=== PATIENT | female | born 1940 | race African-American/Black ===

== ENCOUNTER 2024-09-01 16:55 | Inpatient (IN) | payer MEDICAID ==
[~2024-09-01] VITALS: Ht 160 cm; Wt 52.7 kg
[2024-09-01 18:00] VITALS: BP 125/64; PULSE 90; RESP 18; TEMP 36.1956
[2024-09-01] MEDS ORDERED: GUAIFENESIN 200MG/10ML SUGAR FREE UDC PO PRN (18:00)
[2024-09-01] MEDS ORDERED: MAGNESIUM/ALUMINUM HYDROXIDE/SIMETHICONE 30ML UDC PO PRN (18:00)
[2024-09-01] MEDS ORDERED: CLONIDINE 0.1MG TABLET PO PRN (18:00)
[2024-09-01] MEDS ORDERED: ONDANSETRON 4MG ODT SL PRN (18:00)
[2024-09-01 20:00] VITALS: BP 122/67; PULSE 20; RESP 18; TEMP 36.16956; O2SAT 98
[2024-09-01] MEDS: ACETAMINOPHEN 650MG/20.3ML UDC PO PRN (21:23)
[2024-09-01] MEDS: DICLOFENAC SODIUM 1% GEL 50GM TOP SCH (21:24)
[2024-09-01] MEDS ORDERED: OMEP40CA20 PO (23:28)
[2024-09-01] MEDS ORDERED: MULT-1116 MT (23:28)
[2024-09-01] MEDS ORDERED: CALC-992 PO (23:28)
[2024-09-01] MEDS ORDERED: MELA3TAB42 PO (23:28)
[2024-09-01] MEDS ORDERED: ACET-2708 PO (23:28)
[2024-09-01] MEDS ORDERED: DOCU-138 PO (23:28)
[2024-09-01] MEDS ORDERED: POLY17PO3 PO (23:28)
[2024-09-01] MEDS ORDERED: LISI10TA26 PO (23:28)
[2024-09-02] MEDS: PANTOPRAZOLE 40MG DR TABLET PO SCH (06:04)
[2024-09-02 08:00] VITALS: BP 125/68; PULSE 71; RESP 20; TEMP 36.00288; O2SAT 98
[2024-09-02] MEDS: LISINOPRIL 10MG TABLET PO SCH (09:00)
[2024-09-02] MEDS: AMLODIPINE 5MG TABLET PO SCH (09:13)
[2024-09-02] MEDS: ENOXAPARIN 40MG/0.4ML SYR SUBCUT SCH (09:13)
[2024-09-02 10:06] LABS: BASOPHILS % 1.2 % (0.0-2.0); EOSINOPHILS % 1.2 % (0.0-5.0); HEMATOCRIT. 40.8 % (36.0-48.0); HEMOGLOBIN. 13.2 g/dL (12.0-16.0); LYMPHOCYTES % 29.4 % (20.0-50.0); MEAN CORPUSCULAR HEMOGLOBIN 28.4 pg (28.0-32.0); MEAN CORPUSCULAR HGB CONC 32.3 g/dL (31.0-37.0); MEAN PLATELET VOLUME 8.4 fl (7.4-10.4); MONOCYTES % 5.2 % (2.0-8.0); PLATELET 434 x1000/uL (130-400); RED BLOOD CELL COUNT 4.64 mill/uL (4.2-5.4); WHITE BLOOD COUNT 9.3 x1000/uL (4.5-11.0)
[2024-09-02 15:02] LABS: CHLORIDE 101 mEq/L (98-107); POTASSIUM 4.8 mEq/L (3.5-5.1); SODIUM 136 mEq/L (136-145)
[2024-09-02 15:03] LABS: CALCIUM 9.3 mg/dL (8.7-10.4); CARBON DIOXIDE 28 mEq/L (21-32)
[2024-09-02 15:08] LABS: CREATININE 0.9 mg/dL (0.6-1.0); GLUCOSE 100 mg/dL (70-105); UREA NITROGEN BLOOD 9 mg/dL (9-23)
[2024-09-02 15:10] LABS: PREALBUMIN 16.7 mg/dl (10.0-40.0)
[2024-09-02 20:00] VITALS: BP 143/68; PULSE 83; RESP 18; TEMP 36.22512; O2SAT 99
[2024-09-02] MEDS: ACETAMINOPHEN 325MG TABLET PO PRN (20:55)
[2024-09-03 08:00] VITALS: BP 137/76; PULSE 71; RESP 18; TEMP 35.8362; O2SAT 100
[2024-09-03 20:00] VITALS: BP 111/54; PULSE 82; RESP 18; TEMP 36.78072; O2SAT 99
[2024-09-04 08:00] VITALS: BP 122/70; PULSE 76; RESP 18; TEMP 36.114; O2SAT 98
[2024-09-04] MEDS: PANTOT AC/MIN OIL/PET HY-PHL OINT (AQUAPHOR) TOP SCH (08:58)
[2024-09-04 20:00] VITALS: BP 106/55; PULSE 78; RESP 18; TEMP 36.22512; O2SAT 100
[2024-09-04] MEDS: ZINC OXIDE 20% OINT 30GM TOP PRN (20:00)
[2024-09-04] MEDS: BISACODYL 5MG TABLET PO NR (21:01)
[2024-09-05 08:00] VITALS: BP 125/61; PULSE 72; RESP 17; TEMP 36.50292; O2SAT 98
[2024-09-05] MEDS: BISACODYL 5MG TABLET PO PRN (08:04)
[2024-09-05 19:34] VITALS: BP 118/55; PULSE 83; RESP 19; TEMP 36.05844; O2SAT 97
[2024-09-06 08:00] VITALS: BP 124/67; PULSE 77; RESP 18; TEMP 36.05844; O2SAT 100
[2024-09-06 20:00] VITALS: BP 125/65; PULSE 89; RESP 19; TEMP 36.28068; O2SAT 100
[2024-09-07 08:00] VITALS: BP 121/70; PULSE 69; RESP 18; TEMP 36.72516; O2SAT 96
[2024-09-07] MEDS: DOCUSATE SODIUM 100MG CAPSULE PO PRN (17:28)
[2024-09-07 20:00] VITALS: BP 131/61; PULSE 82; RESP 19; TEMP 36.16956; O2SAT 99
[2024-09-08 08:00] VITALS: BP 117/69; PULSE 72; RESP 20; TEMP 35.89176; O2SAT 100
[2024-09-08 20:00] VITALS: BP 115/62; PULSE 76; RESP 18; TEMP 36.3918; O2SAT 100
[2024-09-09 08:00] VITALS: BP 98/54; PULSE 90; RESP 17; TEMP 36.22512; O2SAT 100
[2024-09-09 20:00] VITALS: BP 116/55; PULSE 94; RESP 18; TEMP 36.3918; O2SAT 100
[2024-09-10 08:00] VITALS: BP 132/63; PULSE 72; RESP 20; TEMP 36.114; O2SAT 100
[2024-09-10 20:00] VITALS: BP 114/57; PULSE 76; RESP 20; TEMP 36.44736; O2SAT 98
[2024-09-11 08:00] VITALS: BP 140/79; PULSE 64; RESP 20; TEMP 36.00288; O2SAT 100
[2024-09-11 20:00] VITALS: BP 116/60; PULSE 74; RESP 18; TEMP 36.114; O2SAT 100
[2024-09-12 08:00] VITALS: BP 142/74; PULSE 74; RESP 21; TEMP 36.3918; O2SAT 100
[2024-09-12] MEDS: ENOXAPARIN 30MG/0.3ML SYR SUBCUT SCH (08:57)
[2024-09-12 20:00] VITALS: BP 132/78; PULSE 78; RESP 1; TEMP 36.61404; O2SAT 98
[2024-09-13 08:00] VITALS: BP 122/65; PULSE 72; RESP 20; TEMP 36.16956; O2SAT 98
[2024-09-13 22:00] VITALS: BP 103/51; PULSE 84; RESP 20; TEMP 36.22512; O2SAT 97
[2024-09-14 19:32] VITALS: BP 122/65; PULSE 83; RESP 20; TEMP 36.16956; O2SAT 98
[2024-09-15 08:00] VITALS: BP 121/70; PULSE 74; RESP 20; TEMP 36.114; O2SAT 99
[2024-09-15 20:00] VITALS: BP 110/66; PULSE 73; RESP 18; TEMP 36.3918; O2SAT 97
[2024-09-16 07:53] VITALS: BP 111/57; PULSE 66; RESP 18; TEMP 35.89176; O2SAT 99
[2024-09-16 20:00] VITALS: BP 117/72; PULSE 69; RESP 18; TEMP 36.55848; O2SAT 100
[2024-09-17 08:00] VITALS: BP 120/66; PULSE 64; RESP 18; TEMP 35.78064; O2SAT 100
[2024-09-17 20:00] VITALS: BP 137/75; PULSE 74; RESP 19; TEMP 36.6696; O2SAT 99
[2024-09-18 08:00] VITALS: BP 141/80; PULSE 75; RESP 20; TEMP 36.22512; O2SAT 100
[2024-09-18 20:00] VITALS: BP 106/64; PULSE 70; RESP 20; TEMP 36.61404; O2SAT 98
[2024-09-19 08:00] VITALS: BP 118/71; PULSE 65; RESP 18; TEMP 35.8362; O2SAT 100
[2024-09-19 20:00] VITALS: BP 117/62; PULSE 78; RESP 20; TEMP 36.44736; O2SAT 98
[2024-09-20 08:00] VITALS: BP 136/67; PULSE 67; RESP 20; TEMP 36.22512; O2SAT 98
[2024-09-20 20:00] VITALS: BP 155/83; PULSE 72; RESP 18; TEMP 36.33624; O2SAT 95
[2024-09-21 08:00] VITALS: BP 135/73; PULSE 78; RESP 20; TEMP 35.89176; O2SAT 78
[2024-09-21] MEDS ORDERED: AMLO5TAB88 MT (09:02)
[2024-09-21] MEDS ORDERED: LISI10TA26 MT (09:03)
[2024-09-21] MEDS ORDERED: DICL100G58 TP (09:04)
[2024-09-21] MEDS ORDERED: PANT40TA51 MT (09:04)
[2024-09-21 09:06] VITALS: BP 135/73; PULSE 78; TEMP 96.6; O2SAT 98
== END 2024-09-21 12:50 | disposition home health service (06) | DRG 340 ==
PROVIDERS: ADMIT Psychiatry & Neurology Neurology; ATTEND Internal Medicine
DX: S72.401A Unspecified fracture of lower end of right femur, initial encounter for closed fracture (principal); I21.4 Non-ST elevation (NSTEMI) myocardial infarction; M62.82 Rhabdomyolysis; I10 Essential (primary) hypertension; K21.9 Gastro-esophageal reflux disease without esophagitis; M21.371 Foot drop, right foot; M75.01 Adhesive capsulitis of right shoulder; B96.20 Unspecified Escherichia coli [E. coli] as the cause of diseases classified elsewhere; R32 Unspecified urinary incontinence; N39.0 Urinary tract infection, site not specified; J44.9 Chronic obstructive pulmonary disease, unspecified; D50.9 Iron deficiency anemia, unspecified; E78.00 Pure hypercholesterolemia, unspecified; R00.0 Tachycardia, unspecified; M25.551 Pain in right hip; R15.9 Full incontinence of feces; R26.2 Difficulty in walking, not elsewhere classified; Z86.73 Personal history of transient ischemic attack (TIA), and cerebral infarction without residual deficits; Z91.81 History of falling; Z87.440 Personal history of urinary (tract) infections; Z82.49 Family history of ischemic heart disease and other diseases of the circulatory system; W18.30XA Fall on same level, unspecified, initial encounter; Y93.89 Activity, other specified; Y92.89 Other specified places as the place of occurrence of the external cause; Y99.8 Other external cause status
CPT/HCPCS: 36415; 73552; 80048; 84134; 85025; 92523; 97110; 97162; 97166; 97530; 97535; 97542; A6261; J1650; L1830

== ENCOUNTER → 2024-10-05 | Outpatient (CLI) | payer MEDICAID ==
[~2024-10-05] MED LIST: ACET-2708 PO; AMLO5TAB88 MT; CALC-992 PO; DICL100G58 TP; DOCU-138 PO; LISI10TA26 MT; LISI10TA26 PO; MELA3TAB42 PO; MULT-1116 MT; OMEP40CA20 PO; PANT40TA51 MT; POLY17PO3 PO
== END | disposition home or self-care (01) ==
LOC: RAD 11:57
PROVIDERS: ATTEND Student in an Organized Health Care Education/Training Program
DX: S72.461D Displaced supracondylar fracture with intracondylar extension of lower end of right femur, subsequent encounter for closed fracture with routine healing (principal); M17.11 Unilateral primary osteoarthritis, right knee; X58.XXXD Exposure to other specified factors, subsequent encounter
CPT/HCPCS: 73552

== ENCOUNTER → 2024-11-01 | Outpatient (CLI) | payer MEDICAID | END | disposition home or self-care (01) | LOC: RAD 10-27 13:28 | PROVIDERS: ATTEND Student in an Organized Health Care Education/Training Program | DX: S72.461A Displaced supracondylar fracture with intracondylar extension of lower end of right femur, initial encounter for closed fracture (principal); X58.XXXA Exposure to other specified factors, initial encounter; Y93.89 Activity, other specified; Y92.89 Other specified places as the place of occurrence of the external cause; Y99.9 Unspecified external cause status | CPT/HCPCS: 73552 ==